=== PATIENT | male | born 1930 | race Hispanic/Latino ===

== ENCOUNTER 2017-01-08 08:32 | Outpatient (CLI) | payer MEDICARE, OTHER ==
[2017-01-08 08:58] LABS: Hematocrit 31.6 % (35.5-45.6); Hemoglobin 10.8 gm/dl (11.8-15.2); Mean Corpuscular HGB Conc 34 % (32-34); Mean Corpuscular Hemoglobin 36 pg (28-32); Mean Corpuscular Volume 105 fl (84-94); Platelet Count 107 K/mm3 (140-440); Red Blood Count 3.02 M/mm3 (3.65-5.03); Red Cell Distribution Width 14.2 % (13.2-15.2); White Blood Count 6.4 K/mm3 (4.5-11.0)
[2017-01-08 09:06] LABS: Bilirubin,Urine NEG (Negative); Blood,Urine NEG (Negative); Ketones,Urine NEG (Negative); Leukocyte Esterase,Urine NEG (Negative); Mucus,Urine FEW /HPF; Nitrite,Urine NEG (Negative); Protein,Urine <15 mg/dL mg/dL (Negative); RBC,Urine < 1.0 /HPF (0.0-6.0); Urobilinogen,Urine < 2.0 mg/dL (<2.0); WBC,Urine < 1.0 /HPF (0.0-6.0)
[2017-01-08 09:21] LABS: Albumin 3.6 g/dL (3.9-5); Calcium 8.5 mg/dL (8.4-10.2); Chloride 101.3 mmol/L (98-107); Phosphorous 2.8 mg/dL (2.5-4.5); Potassium 4.3 mmol/L (3.6-5.0)
== END 2017-01-08 08:33 | disposition home or self-care (01) ==
LOC: LAB 08:32
PROVIDERS: ATTEND Internal Medicine Nephrology
DX: I13.0 Hypertensive heart and chronic kidney disease with heart failure and stage 1 through stage 4 chronic kidney disease, or unspecified chronic kidney disease (principal); I50.9 Heart failure, unspecified; N18.3 Chronic kidney disease, stage 3 (moderate); E11.22 Type 2 diabetes mellitus with diabetic chronic kidney disease; I25.10 Atherosclerotic heart disease of native coronary artery without angina pectoris; E78.00 Pure hypercholesterolemia, unspecified; Z87.891 Personal history of nicotine dependence
CPT/HCPCS: 36415; 80048; 81001; 82040; 82570; 84100; 84156; 85027

== ENCOUNTER 2017-05-20 11:55 | Outpatient (CLI) | payer MEDICARE, OTHER ==
[2017-05-20 12:17] LABS: Bacteria,Urine 1+ /HPF (Negative); Bilirubin,Urine NEG (Negative); Blood,Urine NEG (Negative); Ketones,Urine NEG (Negative); Leukocyte Esterase,Urine TR (Negative); Mucus,Urine FEW /HPF; Nitrite,Urine NEG (Negative); Protein,Urine <15 mg/dL mg/dL (Negative); Urobilinogen,Urine < 2.0 mg/dL (<2.0)
[2017-05-20 12:40] LABS: Albumin 3.4 g/dL (3.9-5); Calcium 8.5 mg/dL (8.4-10.2); Chloride 97.6 mmol/L (98-107); Phosphorous 2.6 mg/dL (2.5-4.5); Potassium 3.9 mmol/L (3.6-5.0)
[2017-05-20 12:42] LABS: Hematocrit 34.2 % (35.5-45.6); Hemoglobin 11.5 gm/dl (11.8-15.2); Mean Corpuscular HGB Conc 34 % (32-34); Mean Corpuscular Hemoglobin 34 pg (28-32); Mean Corpuscular Volume 101 fl (84-94); Platelet Count 122 K/mm3 (140-440); Red Blood Count 3.38 M/mm3 (3.65-5.03); Red Cell Distribution Width 13.8 % (13.2-15.2); White Blood Count 6.9 K/mm3 (4.5-11.0)
[2017-05-22 14:55] LABS: Vitamin D, 25-OH, Total 52 ng/mL (30-100)
== END 2017-05-20 11:56 | disposition home or self-care (01) ==
LOC: LAB 11:55
PROVIDERS: ATTEND Internal Medicine Nephrology
DX: I13.0 Hypertensive heart and chronic kidney disease with heart failure and stage 1 through stage 4 chronic kidney disease, or unspecified chronic kidney disease (principal); N18.3 Chronic kidney disease, stage 3 (moderate); I50.9 Heart failure, unspecified; E11.22 Type 2 diabetes mellitus with diabetic chronic kidney disease
CPT/HCPCS: 36415; 80048; 81001; 82040; 82306; 82570; 84100; 84156; 85027

== ENCOUNTER 2017-10-21 07:25 | Emergency (ER) | payer MEDICARE, OTHER ==
[2017-10-21] MEDS ORDERED: NORCO 5/325 PO ONE (07:57)
[2017-10-21] MEDS ORDERED: TRIPLE ANTIBIOTIC TP ONE (07:57)
[2017-10-21] MEDS ORDERED: FLEXERIL PO ONE (07:57)
--- NOTE | 2017-10-21 08:03 | Emergency Department Report ---
ED Fall HPI - General Chief Complaint: Back Pain/Injury Stated Complaint: FALL Time Seen by Provider: 10/21/17 07:49 Source: patient, family Mode of arrival: Ambulatory Limitations: No Limitations - History of Present Illness Initial Comments: Patient reports falling Saturday night and tripped and fell back hitting the right flank area. He states that he tripped on one small step. is here with him and said that patient passed to use a cane to get around for as before he was independent without any impairment in his mobility. Patient states that it's hard for him to topic disease having a lot of pain. Pain is located to his lower back on the right side, pelvis area and right elbow extending down to his right hand. He is also reported that he has several bruises in to his right forearm and elbow. Denies any nausea or vomiting. Denies any head injury. Patient takes Tylenol 3 and reports the foot patient has been taken and last gave the patient medication on Saturday for pain. Patient is on Plavix but he did not have any head injury and denies any headache. Denies any neck pain or stiffness. Denies any numbness or tingling to extremities or any loss of bowel or bladder function. Pain is worse with movement and better with rest. Patient also takes multiple other medication at home. does not have medication lists but he takes Plavix and Tylenol No. 3. He has a history of arthritis, DVT in his left leg 9 months ago. Diabetes, GERD heart attack high blood pressure. Kidney disease stage III and coronary artery stent. MD Complaint: fall Onset/Timin -: days(s) Fall From: standing When Fall Occurred: # days [employer] (2) Fall Witnessed: yes, by family Place Fall Occurred: home Loss of Consciousness: none Prolonged Down Time?: no Symptoms Prior to Fall: none Location: back, pelvis Location - Extremities: Right: Elbow (pain, bruising and abrasion), Forearm ( pain, bruising and abrasion), Hand (pain, bruising and abrasion) Severity: severe Severity scale (0 -10): 10 Quality: aching Context: tripped/slipped Associated Symptoms: other (difficulty and ambulated in). denies: headache, neck pain, numbness, weakness, chest paint, shortness of breath, abdominal pain , hematuria, lightheaded, vertigo, confusion - Related Data Previous Rx's Medication Instructions Recorded Last Taken Type Clopidogrel [Plavix] 75 mg PO QDAY #30 tablet 11/22/15 10/20/17 09:00 Rx Acetaminophen/Codeine [Tylenol 1 tab PO Q4HR PRN #14 tablet 07/18/17 10/19/17 21 :45 Rx /Codeine # 3 tab] Cyclobenzaprine [Flexeril] 10 mg PO BID PRN #10 tablet 10/21/17 Unknown Rx Allergies Allergy/AdvReac Type Severity Reaction Status Date / Time indomethacin Allergy Vomiting Verified 10/21/17 07:35 ED Review of Systems ROS: Stated complaint: FALL Other details as noted in HPI Comment: All other systems reviewed and negative Constitutional: no symptoms reported Eyes: denies: eye pain, eye discharge, vision change ENT: denies: ear pain, throat pain, congestion Respiratory: denies: cough, orthopnea, shortness of breath, SOB with exertion, SOB at rest, wheezing Cardiovascular: denies: chest pain, palpitations, dyspnea on exertion, edema, syncope, paroxysmal nocturnal dyspnea Endocrine: no symptoms reported Gastrointestinal: denies: abdominal pain, nausea, vomiting, diarrhea, constipation, hematemesis, melena, hematochezia Genitourinary: denies: urgency, dysuria, frequency, hematuria, discharge, testicular pain, testicular mass Musculoskeletal: denies: back pain, joint swelling, arthralgia Skin: denies: rash, lesions Neurological: denies: headache, weakness, numbness, paresthesias, confusion, abnormal gait, vertigo Hematological/Lymphatic: denies: easy bruising ED Past Medical Hx - Past Medical History Previous Medical History?: Yes Hx Hypertension: Yes (FOR 20+ YRS, DR. 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) Hx HIV: No - Surgical History Past Surgical History?: Yes Hx Coronary Stent: Yes (X2 IN 1998) - Family History Family history: hypertension - Social History Smoking Status: Former Smoker Substance Use Type: None Other Social History: and lives at home - Medications Home Medications: Home Medications Medication Instructions Recorded Confirmed Last Taken Type Clopidogrel [Plavix] 75 mg PO QDAY #30 tablet 11/22/15 10/21/17 10/20/17 09:00 Rx Acetaminophen/Codeine [Tylenol 1 tab PO Q4HR PRN #14 tablet 07/18/17 10/21/17 21:45 Rx /Codeine # 3 tab] Cyclobenzaprine [Flexeril] 10 mg PO BID PRN #10 tablet 10/21/17 Unknown Rx ED Physical Exam - General Limitations: Physical Limitation General appearance: alert, in no apparent distress - Head Head exam: Present: atraumatic, normocephalic, normal inspection - Expanded Head Exam Expanded Head exam: Absent: laceration, abrasion, contusion, hematoma, racoon eyes, corona's sign, general tenderness, tenderness of temporal artery, CSF rhinorrhea , CSF otorrhea - Eye Eye exam: Present: normal appearance, PERRL, EOMI. Absent: scleral icterus, conjunctival injection, nystagmus, periorbital swelling, periorbital tenderness Pupils: Present: normal accommodation - ENT ENT exam: Present: normal exam, normal orophraynx, mucous membranes moist, TM's normal bilaterally, normal external ear exam - Neck Neck exam: Present: normal inspection, full ROM, other (no C-spine tenderness). Absent: tenderness, meningismus, lymphadenopathy - Expanded Neck Exam Expanded Neck exam: Absent: tenderness, midline deformity, anterior neck swelling, tracheal deviation - Respiratory Respiratory exam: Present: normal lung sounds bilaterally. Absent: respiratory distress, wheezes, rales, rhonchi, stridor, chest wall tenderness, accessory muscle use, decreased breath sounds, prolonged expiratory - Cardiovascular Cardiovascular Exam: Present: regular rate, normal rhythm, normal heart sounds. Absent: systolic murmur, diastolic murmur - GI/Abdominal GI/Abdominal exam: Present: soft, normal bowel sounds. Absent: distended, tenderness, guarding, rebound, rigid, organomegaly, mass, bruit, pulsatile mass , hernia - Extremities Exam Extremities exam: Present: normal inspection, full ROM, normal capillary refill , other (no clubbing, cyanosis or edema. +2 pulses all extremities. No joint deformities. Positive abrasions and skin tear to right forearm and right elbow. Positive bruising to right forearm and right elbow otherwise normal extremity). Absent: tenderness, pedal edema, joint swelling, calf tenderness - Expanded Upper Extremity Exam Right General: Present: abrasion. Absent: normal inspection Shoulder Exam: Present: normal inspection, full ROM, ecchymosis. Absent: tenderness, swelling, abrasion, laceration, deformity, crepidus, dislocation, erythema, tenderness over AC joint Upper Arm exam: Present: normal inspection, full ROM. Absent: tenderness, swelling, abrasion, laceration, ecchymosis, deformity, crepidus, dislocation, erythema Elbow exam: Present: normal inspection, full ROM, tenderness, swelling, abrasion , ecchymosis. Absent: laceration, deformity, crepidus, dislocation, erythema, effusion, pain w/ pronation/supination, tenderness over radial head Forearm Wrist exam: Present: normal inspection, full ROM, tenderness, swelling, abrasion, ecchymosis. Absent: laceration, deformity, crepidus, dislocation, erythema, tenderness over anatomical snuff box, pain with axial thumb loading Hand Wrist exam: Present: normal inspection, full ROM, tenderness (right hand), swelling (right hand), laceration, ecchymosis (right hand). Absent: abrasion, deformity, crepidus, dislocation, amputation, nail avulsion, subungual hematoma Neuro motor exam: Present: wrist extension intact, thumb opposition intact, thumb IP flexion intact, thumb adduction intact, fingers 2-5 abduction intact Neurosensory exam: Present: 2-point discrimination, radial nerve intact, ulnar nerve intact, median nerve intact Vascular: Present: normal capillary refill, radial pulse, brachial pulse, ulnar pulse. Absent: vascular compromise, Pallo, pulse deficit radial art, pulse deficit ulnar art, pulse deficit brachial art - Back Exam Back exam: Present: normal inspection, full ROM, tenderness, paraspinal tenderness (right paraspinal tenderness), other (patient ambulates with cane which is new.). Absent: CVA tenderness (R), CVA tenderness (L), muscle spasm, vertebral tenderness, rash noted - Neurological Exam Neurological exam: Present: alert, oriented X3, abnormal gait (patient uses a cane to ambulate.), motor sensory deficit, reflexes normal - Psychiatric Psychiatric exam: Present: normal affect, normal mood - Skin Skin exam: Present: warm, dry, intact, erythema, abrasion (patient has abrasions to right distal forearm and right elbow. Bruising to right distal to mid forearm, right elbow and right hand.) ED Course Vital Signs 10/21/17 10/21/17 10/21/17 07:36 09:13 14:16 Temperature 97.9 F Pulse Rate 79 74 Respiratory 18 16 18 Rate Blood Pressure 128/65 Blood Pressure 124/70 [Left] O2 Sat by Pulse 98 98 Oximetry - Reevaluation(s) Reevaluation #1: 10/21/17 09:[address] scan of the lumbar spine revealed left L2 nondisplaced lumbar fracture. Degenerative disc disease and osteopenia. Patient was given [place] 5/325 2 tablets in emergency room and Flexeril 10 mg by mouth to manage pain which controlled his pain. Urinalysis did not detect any infection but positive for protein Reevaluation #2: 10/21/17 11:10 Patient is stable and pain is controlled. Patient patient has to use assistive device to ambulate. He is slow to ambulate. Reevaluation #3: 10/21/17 12:[address] Wander Lopez office and awaiting callback from her regarding patient Reevaluation #4: 10/21/17 12:[address] Jamil and it is agreed upon that patient can be discharged home with follow-up with primary care and I'll also refer him to Dr. Wander Lopez who is neurosurgeon. Patient demonstrated walk-in with assistive device without any difficulties. He said his pain is better and he is not having any pain at present. Patient with fracture to left L2 transverse process that is nondisplaced, osteopenia and scoliosis and advanced lumbar spondylosis ED Medical Decision Making - Radiology Data Radiology results: report reviewed CT scan of lumbar spine:Patient with fracture to left L2 transverse process that is nondisplaced, osteopenia and scoliosis and advanced lumbar spondylosis CT scan of pelvis without contrast shows osteopenia. Degenerative changes. No acute pelvic injury X-ray of right forearm reveals no acute bony abnormalities but patient with osteopenia X-ray of right elbow reveal patient with no acute bony abnormality but with osteopenia and x-ray of right hand reveal patient with no acute findings. Print Report Referring Physician: MARY SANCHEZ Patient Name: FLORA GREEN Date of : 1930 Sex: Male Report Date: 2017-10-21 Report Status: Finalized Findings [address] [address] Cat Scan Report Signed Patient: FLORA GREEN MR#: [id number] : 1930 Acct:[id number] Age/Sex: 86 / M ADM Date: 10/21/17 Loc: ED Attending Dr: Ordering Physician: ANDRZEJ DIAZ Date of Service: 10/21/17 Procedure(s): CT lumbar spine wo con Accession Number(s): [id number] cc: ANDRZEJ DIAZ CT LUMBAR SPINE WITHOUT CONTRAST History: Fall with lower back pain. Technique: Helical CT in 1.25 mm intervals with sagittal and coronal reformatted images. Findings: Moderate to severe osteopenia is suspected. A very subtle nondisplaced fracture is identified in the distal tip of the left transverse process of L2. This is best demonstrated on coronal image 70. No additional fracture is identified. There is moderate scoliosis and advanced multilevel degenerative disc disease and facet arthropathy. All levels are affected. No evidence for compression deformity, subluxation or bone lesion. Although intraspinal contents can be obscured on CT, no large epidural hematoma is appreciated. IMPRESSION: Left L2 transverse process fracture, nondisplaced. Osteopenia. Scoliosis and advanced lumbar spondylosis. Transcribed By: TTR Dictated By: DANIEL LING JR, MD Electronically Authenticated By: DANIEL LING JR, MD Signed Date/Time: 10/21/17908 DD/ 6 TD/TT: 10/21/17908 Referring Physician: MARY SANCHEZ Patient Name: FLORA GREEN Date of : 1930 Sex: Male Report Date: 2017-10-21 Report Status: Finalized Findings [facility] [address] [place] [address] XRay Report Signed Patient: FLORA GREEN MR#: [id number] : 1930 Acct:[id number] Age/Sex: 86 / M ADM Date: 10/21/17 Loc: ED Attending Dr: Ordering Physician: ANDRZEJ DIAZ Date of Service: 10/21/17 Procedure(s): XR forearm RT Accession Number(s): [id number] cc: ANDRZEJ DIAZ Fluoro Time In Minutes: RIGHT FOREARM: History: Pain. Osteopenia is noted. There has been previous internal fixation of the distal right radius. No acute fracture or malalignment is identified. The soft tissues are unremarkable IMPRESSION: No acute injury detected. Osteopenia. Transcribed By: TTR Dictated By: DANIEL LING JR, MD Electronically Authenticated By: DANIEL LING JR, MD Signed Date/Time: 10/21/17935 DD/ 4 TD/TT: 10/21/17935 Print Report Referring Physician: MARY SANCHEZ Patient Name: FLORA GREEN Date of : 1930 Sex: Male Report Date: 2017-10-21 Report Status: Finalized Findings [facility] [address] [id number] Cat Scan Report Signed Patient: FLORA GREEN MR#: [id number] : 1930 Acct:[id number] Age/Sex: 86 / M ADM Date: 10/21/17 Loc: ED Attending Dr: Ordering Physician: ANDRZEJ DIAZ Date of Service: 10/21/17 Procedure(s): CT pelvis wo con Accession Number(s): [id number] cc: ANDRZEJ DIAZ CT PELVIS WITHOUT CONTRAST History: Pain after fall. Technique: Helical CT in 1.25 mm intervals with sagittal reformatted images. Findings: Moderate to severe osteopenia is suspected. There is no evidence for displaced pelvic fracture, diastasis or bone lesion. Mild osteoarthritic changes are noted in both hips and SI joints. The pelvic viscera are grossly intact. An aortobiiliac stent is partially imaged and unremarkable. 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 Bilateral iliac vein stents are also in position. Impression: Osteopenia. Degenerative changes. No acute pelvic injury is appreciated. Transcribed By: TTR Dictated By: DANIEL LING JR, MD Electronically Authenticated By: DANIEL LING JR, MD Signed Date/Time: 10/21/17905 DD/ 3 TD/TT: 10/21/17905 Findings [facility] [address] [place] [address] XRay Report Signed Patient: FLORA GREEN MR#: [id number] : 1930 Acct:[id number] Age/Sex: 86 / M ADM Date: 10/21/17 Loc: ED Attending Dr: Ordering Physician: ANDRZEJ DIAZ Date of Service: 10/21/17 Procedure(s): XR hand 3+V RT Accession Number(s): [id number] cc: ANDRZEJ DIAZ Fluoro Time In Minutes: Right hand: Fall, pain. There is a dorsal plate over the distal radius from prior injury with good bone union. Well-positioned screws. The remainder of the hand is generally unremarkable. No evidence of fracture, dislocation, or joint narrowing. No focal swelling noted. Impression: No acute finding. Right forearm: Fall, pain. The surgical plate is again noted of the distal radius. The bony structures are intact. There is good alignment of the radiocarpal joint space. No focal swelling noted. Impression: No acute change. LEFT ELBOW: Fall, abrasion. The bony architecture is intact without evidence of fracture or dislocation. No significant soft tissue abnormality is seen. IMPRESSION: Normal left elbow. Transcribed By: [facility]–1983 Dictated By: NEGAR CHEEMA MD Electronically Authenticated By: NEGAR CHEEMA MD Signed Date/Time: 10/21/17936 DD/ 2 TD/TT: 10/21/17936 - Medical Decision Making Ed Course: Patient here with who reports patient fell 2 days ago and having hip and back pain. UA negative findings. Xray of left elbow, FA and hand without fx or dislocation. Ct scan of lumbar spine with fracture to left L2 transverse process. Pelvis Ct revealed no fx or dislocation but osteopenia. Pt xray and ct scan with osteopenia. I explained to patient and CT scan, Xray and UA results. They voiced understanding. Patient to followup with PCP and Dr Steven Lopez in [place], [place]. patient given [place] 5/325 mg and flexeril 10 mg po in Ed with complete relief of pain. I collaborated with Dr. Jamil on patient complaints, physical findings and radiology reports. He wants patient to be managed outpatient by PCP and I also referred patient to followup with Neurosurgeon. Patient given walker and demonstrated use of walker. He has no neurological deficits. Please refer to lab section and radiology section for detail reports. Patient and his voiced understanding of discharge information and reports feeling better. discharge home in stable condition with prescription for flexeril and he can take Tylenol #3 that he already has with fall precaution instructions. - Differential Diagnosis fracture spine, lumbago, Critical care attestation.: If time is entered above; I have spent that time in minutes in the direct care of this critically ill patient, excluding procedure time. ED Disposition Clinical Impression: Arthralgia of multiple sites, Mobility impaired, Abrasion, multiple sites Fracture of transverse process of lumbar vertebra Qualifiers: Encounter type: initial encounter Fracture type: closed Qualified Code(s): S32.009A - Unspecified fracture of unspecified lumbar vertebra, initial encounter for closed fracture Pain in lower back Qualifiers: Chronicity: acute Back pain laterality: right Sciatica presence: without sciatica Qualified Code(s): M54.5 - Low back pain Accidental fall Qualifiers: Encounter type: initial encounter Qualified Code(s): W19.XXXA - Unspecified fall, initial encounter Superficial bruising of upper limb Qualifiers: Encounter type: initial encounter Laterality: right Qualified Code(s): S40.021A - Contusion of right upper arm, initial encounter Disposition: TO HOME OR SELFCARE Is pt being admited?: No Does the pt Need Aspirin: No Condition: Stable Instructions: Fall Prevention for Older Adults (ED), Thoracolumbar Fracture (ED ), Contusion in Adults (ED), Abrasion (ED), Musculoskeletal Pain (ED), Arthralgia (ED) Additional Instructions: Please return to the emergency room if you develop any loss of bowel or bladder control, worsening in and difficulty in walking., Increase in pain does not relieve by medication, dizziness, blurred vision, headache, nausea and/or vomiting. Follow-up with primary care physician in [address] Wander Lopez office and schedule an appointment for follow-up visit tomorrow see information and discharge instruction paperwork .her office is located in [place]. Please follow discharge instruction and fall in elderly He can take Tylenol No. 3 as prescribed by a previous doctor but please do not drive or operate heavy machinery and be aware that this medication can cause you to fall because it is a narcotic. Flexeril will also help the pain but he can also make you drowsy and lesion increased risk for fall so please use a walker as instructed Keep abrasion sites clean and dry and apply neosporin ointment daily ubtil healed Prescriptions: Cyclobenzaprine [Flexeril] 10 mg PO BID PRN #10 tablet PRN Reason: Muscle Spasm and pain Referrals: PRIMARY CARE, [Primary Care Provider] - 10/23/17 [facility] [place] [Other] - 10/23/17 (Dr Steven Lopez)
--- NOTE | 2017-10-21 09:16 | Cat Scan Report ---
CT PELVIS WITHOUT CONTRAST History: Pain after fall. Technique: Helical CT in 1.25 mm intervals with sagittal reformatted images. Findings: Moderate to severe osteopenia is suspected. There is no evidence for displaced pelvic fracture, diastasis or bone lesion. Mild osteoarthritic changes are noted in both hips and SI joints. The pelvic viscera are grossly intact. An aortobiiliac stent is partially imaged and unremarkable. 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 Bilateral iliac vein stents are also in position. Impression: Osteopenia. Degenerative changes. No acute pelvic injury is appreciated.
[2017-10-21 09:19] LABS: Bilirubin,Urine NEG (Negative); Blood,Urine NEG (Negative); Color,Urine Yellow (Yellow); Mucus,Urine FEW /HPF; Urobilinogen,Urine < 2.0 mg/dL (<2.0)
--- NOTE | 2017-10-21 09:19 | Cat Scan Report ---
CT LUMBAR SPINE WITHOUT CONTRAST History: Fall with lower back pain. Technique: Helical CT in 1.25 mm intervals with sagittal and coronal reformatted images. Findings: Moderate to severe osteopenia is suspected. A very subtle nondisplaced fracture is identified in the distal tip of the left transverse process of L2. This is best demonstrated on coronal image 70. No additional fracture is identified. There is moderate scoliosis and advanced multilevel degenerative disc disease and facet arthropathy. All levels are affected. No evidence for compression deformity, subluxation or bone lesion. Although intraspinal contents can be obscured on CT, no large epidural hematoma is appreciated. IMPRESSION: Left L2 transverse process fracture, nondisplaced. Osteopenia. Scoliosis and advanced lumbar spondylosis.
--- NOTE | 2017-10-21 09:44 | XRay Report ---
BILATERAL ELBOW, 2 VIEWS History: Pain. Findings: 2 Non-standard views of both elbows are presented. No gross fracture or malalignment. Osteopenia is noted. Impression: No acute abnormality detected. Osteopenia.
--- NOTE | 2017-10-21 09:45 | XRay Report ---
RIGHT FOREARM: History: Pain. Osteopenia is noted. There has been previous internal fixation of the distal right radius. No acute fracture or malalignment is identified. The soft tissues are unremarkable IMPRESSION: No acute injury detected. Osteopenia.
--- NOTE | 2017-10-21 09:49 | XRay Report ---
Right hand: Fall, pain. There is a dorsal plate over the distal radius from prior injury with good bone union. Well-positioned screws. The remainder of the hand is generally unremarkable. No evidence of fracture, dislocation, or joint narrowing. No focal swelling noted. Impression: No acute finding. Right forearm: Fall, pain. The surgical plate is again noted of the distal radius. The bony structures are intact. There is good alignment of the radiocarpal joint space. No focal swelling noted. Impression: No acute change. LEFT ELBOW: Fall, abrasion. The bony architecture is intact without evidence of fracture or dislocation. No significant soft tissue abnormality is seen. IMPRESSION: Normal left elbow.
[2017-10-21 14:18] VITALS: BP 124/70
== END 2017-10-21 14:13 | disposition home or self-care (01) ==
LOC: ED 07:25
DX: S40.021A Contusion of right upper arm, initial encounter (principal); S32.009A Unspecified fracture of unspecified lumbar vertebra, initial encounter for closed fracture; I13.0 Hypertensive heart and chronic kidney disease with heart failure and stage 1 through stage 4 chronic kidney disease, or unspecified chronic kidney disease; E11.22 Type 2 diabetes mellitus with diabetic chronic kidney disease; N18.3 Chronic kidney disease, stage 3 (moderate); K21.9 Gastro-esophageal reflux disease without esophagitis; Z95.1 Presence of aortocoronary bypass graft; Z86.718 Personal history of other venous thrombosis and embolism; Z87.891 Personal history of nicotine dependence; W01.198A Fall on same level from slipping, tripping and stumbling with subsequent striking against other object, initial encounter; Y93.89 Activity, other specified; Y92.89 Other specified places as the place of occurrence of the external cause; Y99.8 Other external cause status
CPT/HCPCS: 72131; 72192; 81001; A6250

== ENCOUNTER 2018-01-14 10:32 | Outpatient (CLI) | payer MEDICARE, OTHER ==
[2018-01-14 10:59] LABS: Hematocrit 34.7 % (35.5-45.6); Hemoglobin 11.7 gm/dl (11.8-15.2); Mean Corpuscular HGB Conc 34 % (32-34); Mean Corpuscular Hemoglobin 35 pg (28-32); Mean Corpuscular Volume 104 fl (84-94); Red Blood Count 3.33 M/mm3 (3.65-5.03); Red Cell Distribution Width 15.6 % (13.2-15.2)
[2018-01-14 11:02] LABS: Platelet Count 80 K/mm3 (140-440)
[2018-01-14 11:17] LABS: Bilirubin,Urine NEG (Negative); Blood,Urine NEG (Negative); Color,Urine Yellow (Yellow); Hyaline Casts,Urine 1 /LPF; Protein,Urine <15 mg/dL mg/dL (Negative); Urobilinogen,Urine < 2.0 mg/dL (<2.0)
[2018-01-14 11:21] LABS: Albumin 3.2 g/dL (3.9-5); Calcium 8.5 mg/dL (8.4-10.2)
[2018-01-14 12:12] LABS: Creatinine,Urine 105.7 mg/dL (0.1-20.0); Protein/Creatinine Ratio,Urine 0.22
== END 2018-01-14 10:33 | disposition home or self-care (01) ==
LOC: LAB 10:32
PROVIDERS: ATTEND Internal Medicine Nephrology
DX: I12.9 Hypertensive chronic kidney disease with stage 1 through stage 4 chronic kidney disease, or unspecified chronic kidney disease (principal); E11.22 Type 2 diabetes mellitus with diabetic chronic kidney disease; N18.3 Chronic kidney disease, stage 3 (moderate); E78.00 Pure hypercholesterolemia, unspecified; K21.9 Gastro-esophageal reflux disease without esophagitis; I73.9 Peripheral vascular disease, unspecified; I25.10 Atherosclerotic heart disease of native coronary artery without angina pectoris; M17.0 Bilateral primary osteoarthritis of knee; Z87.891 Personal history of nicotine dependence; Z88.6 Allergy status to analgesic agent
CPT/HCPCS: 36415; 80048; 81001; 82040; 82248; 82570; 84100; 84156; 85027

== ENCOUNTER 2018-10-08 15:45 | Outpatient (CLI) | payer MEDICARE, OTHER ==
[2018-10-08 16:33] LABS: Basophils # (Auto) 0.1 K/mm3 (0.0-0.1); Basophils % (Auto) 1.2 % (0.0-1.8); Eosinophils # (Auto) 0.2 K/mm3 (0.0-0.4); Eosinophils % (Auto) 3.3 % (0.0-4.3); Hematocrit 36.5 % (35.5-45.6); Hemoglobin 12.3 gm/dl (11.8-15.2); Lymphocytes # (Auto) 3.2 K/mm3 (1.2-5.4); Lymphocytes % (Auto) 43.8 % (13.4-35.0); Mean Corpuscular HGB Conc 34 % (32-34); Mean Corpuscular Volume 104 fl (84-94); Monocytes # (Auto) 0.8 K/mm3 (0.0-0.8); Monocytes % (Auto) 10.5 % (0.0-7.3); Platelet Count 112 K/mm3 (140-440); Red Blood Count 3.51 M/mm3 (3.65-5.03)
[2018-10-08 16:43] LABS: Bilirubin,Urine NEG (Negative); Blood,Urine NEG (Negative); Color,Urine Yellow (Yellow); Hyaline Casts,Urine 1 /LPF; Mucus,Urine 1+ /HPF
[2018-10-08 16:45] LABS: Creatinine,Urine 168.8 mg/dL (0.1-20.0); Microalbumin/Creatinine Ratio 113.1 ug/mg; Protein/Creatinine Ratio,Urine 0.3
[2018-10-08 17:33] LABS: Chol/HDL Ratio 2.14 %
== END 2018-10-08 15:46 | disposition home or self-care (01) ==
LOC: LAB 15:45
PROVIDERS: ATTEND Internal Medicine Nephrology
DX: I12.9 Hypertensive chronic kidney disease with stage 1 through stage 4 chronic kidney disease, or unspecified chronic kidney disease (principal); E11.51 Type 2 diabetes mellitus with diabetic peripheral angiopathy without gangrene; E11.22 Type 2 diabetes mellitus with diabetic chronic kidney disease; N18.3 Chronic kidney disease, stage 3 (moderate); E78.49 Other hyperlipidemia; I25.10 Atherosclerotic heart disease of native coronary artery without angina pectoris; E78.00 Pure hypercholesterolemia, unspecified; K21.9 Gastro-esophageal reflux disease without esophagitis; M19.90 Unspecified osteoarthritis, unspecified site; Z87.891 Personal history of nicotine dependence
CPT/HCPCS: 36415; 80048; 80061; 81001; 82040; 82043; 82570; 83036; 83970; 84100; 84156; 85025

== ENCOUNTER 2018-10-21 15:46 | Emergency (ER) | payer MEDICARE, OTHER ==
--- NOTE | 2018-10-21 16:26 | Emergency Department Report ---
Chief Complaint: Head Injury Stated Complaint: LFT EYE PAIN Time Seen by Provider: 10/21/18 16:21 - HPI History of Present Illness: This is a 87 y.o. male that presents to the ER s/p fall 3 days. Patient fell Saturday night and woke up on the floor. Patient went to ophthalmology and Cardiology Dr. Bermudez. Patient reports patient complaining of left sided rib pain. PMH: HTN, DM2, HLD, & atherosclerosis. - Exam Vital Signs: Vital Signs 10/21/18 16:12 Temperature 97.7 F Pulse Rate 84 Respiratory 20 Rate Blood Pressure 129/71 O2 Sat by Pulse 99 Oximetry MSE screening note: Focused history and physical exam performed. Due to findings the following was ordered: Labs, CT of facial bones, head, and XR of left sided rib pain. Main ED for further evaluation. ED Disposition for MSE Condition: Stable
[2018-10-21 16:47] LABS: Hematocrit 33.5 % (35.5-45.6); Hemoglobin 11.3 gm/dl (11.8-15.2); Mean Corpuscular HGB Conc 34 % (32-34); Mean Corpuscular Volume 105 fl (84-94); Platelet Count 116 K/mm3 (140-440); Red Blood Count 3.18 M/mm3 (3.65-5.03); Red Cell Distribution Width 16.2 % (13.2-15.2)
[2018-10-21 17:18] LABS: Basophils % (Manual) 0 % (0.0-1.8); Myelocytes # (Manual) 0.1 K/mm3; Total Cells Counted 100
[2018-10-21 17:19] LABS: Anisocytosis Few; Ovalocytes Few; Platelet Estimate Appears Decreased
--- NOTE | 2018-10-21 17:19 | Cat Scan Report ---
PROCEDURE: CT FACIAL BONES WO CON HISTORY: headache, bruising, and swelling left frontal FINDINGS: Unenhanced CT of the facial bones was performed and data was reformatted into sagittal and coronal planes. These images demonstrate left frontal scalp swelling without calvarial fracture. There is also left f acial soft tissue swelling. The nasal bones, bony orbits, zygomatic arches, mandible and maxilla appear intact. Both globes appear unremarkable. There is no retrobulbar mass or hemorrhage. There is sinus mucosal thickening without acute sinusitis. IMPRESSION: Left frontal and left facial soft tissue swelling The facial bones and bony orbits appear intact This document is electronically signed by Berlin Gates MD., Oct 21 2018 05:17:14 PM ET
--- NOTE | 2018-10-21 17:21 | Cat Scan Report ---
PROCEDURE: CT HEAD/BRAIN WO CON TECHNIQUE: Computerized tomography of the head was performed without contrast material. CT DOSE LENGTH PRODUCT: 805.4 mGycm HISTORY: headache, bruising Findings: Unenhanced CT of the brain was performed and demonstrates no acute intracranial hemorrhage, intra-axi al fluid collection, midline shift or mass effect. The ventricles and basal cisterns are not effaced. 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 There are moderate chronic-appearing small vessel ischemic white matter changes in subcortical and pe riventricular left frontal scalp swelling without calvarial fracture. The mastoid air cells and middle ears appear clear. There is no evidence of acute sinusitis. IMPRESSION: No acute intracranial hemorrhage This document is electronically signed by Berlin Gates MD., Oct 21 2018 05:19:19 PM ET
--- NOTE | 2018-10-21 17:56 | Emergency Department Report ---
ED Fall HPI - General Chief Complaint: Head Injury Stated Complaint: LFT EYE PAIN Time Seen by Provider: 10/21/18 16:21 Source: patient, family Mode of arrival: Ambulatory - History of Present Illness Initial Comments: Patient is 87 years old male with history of hypertension, diabetes coronary artery disease on Coumadin. Patient brought to the emergency room accompanied by his stating that patient had an to falls in the last 2 weeks. Patient presented with ecchymosis to the left eye. 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 Patient is currently denying any symptoms specifically patient denied any headache, weakness numbness or tingling sensation. Patient denied any chest pain shortness of breath or dizziness. MD Complaint: fall -: days(s) (3) Fall From: out of bed - Related Data Previous Rx's Medication Instructions Recorded Last Taken Type Clopidogrel [Plavix] 75 mg PO QDAY #30 tablet 11/22/15 10/20/17 09:00 Rx Acetaminophen/Codeine [Tylenol 1 tab PO Q4HR PRN #14 tablet 07/18/17 10/19/17 21:45 Rx /Codeine # 3 tab] Cyclobenzaprine [Flexeril] 10 mg PO BID PRN #10 tablet 10/21/17 Unknown Rx Allergies Allergy/AdvReac Type Severity Reaction Status Date / Time indomethacin Allergy Vomiting Verified 10/21/18 16:10 ED Review of Systems ROS: Stated complaint: LFT EYE PAIN Other details as noted in HPI Comment: All other systems reviewed and negative Constitutional: denies: chills, fever Respiratory: denies: cough, orthopnea, shortness of breath, SOB with exertion, SOB at rest, wheezing Cardiovascular: denies: chest pain, palpitations Gastrointestinal: denies: abdominal pain, nausea, vomiting, diarrhea, constipation, hematemesis, hematochezia Neurological: denies: headache, numbness, paresthesias ED Past Medical Hx - Past Medical History Hx Hypertension: Yes (FOR 20+ YRS, DR. 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) Hx HIV: No - Surgical History Hx Coronary Stent: Yes (X2 IN 1998) - Social History Smoking Status: Never Smoker Substance Use Type: None - Medications Home Medications: Home Medications Medication Instructions Recorded Confirmed Last Taken Type Clopidogrel [Plavix] 75 mg PO QDAY #30 tablet 11/22/15 10/21/17 10/20/17 09:00 Rx Acetaminophen/Codeine [Tylenol 1 tab PO Q4HR PRN #14 tablet 07/18/17 10/21/17 21:45 Rx /Codeine # 3 tab] Cyclobenzaprine [Flexeril] 10 mg PO BID PRN #10 tablet 10/21/17 Unknown Rx ED Physical Exam - General Limitations: No Limitations General appearance: alert, in no apparent distress - Head Head exam: Present: other (ecchymosis to the left periorbital area) - Eye Eye exam: Present: normal appearance, PERRL - ENT ENT exam: Present: mucous membranes moist - Neck Neck exam: Present: normal inspection, full ROM. Absent: tenderness, meningismus, lymphadenopathy, thyromegaly - Respiratory Respiratory exam: Present: normal lung sounds bilaterally. Absent: respiratory distress, wheezes, rales, rhonchi, chest wall tenderness, accessory muscle use, decreased breath sounds, prolonged expiratory - Cardiovascular Cardiovascular Exam: Present: regular rate, normal rhythm, normal heart sounds - GI/Abdominal GI/Abdominal exam: Present: soft, normal bowel sounds. Absent: distended, tenderness, guarding, rebound, rigid, organomegaly, mass, bruit, pulsatile mass, hernia - Extremities Exam Extremities exam: Present: normal inspection, full ROM, normal capillary refill. Absent: pedal edema, calf tenderness - Back Exam Back exam: Present: normal inspection, full ROM. Absent: tenderness, CVA tenderness (R), CVA tenderness (L), muscle spasm, paraspinal tenderness, vertebral tenderness - Neurological Exam Neurological exam: Present: alert, oriented X3, CN II-XII intact, normal gait, reflexes normal - Psychiatric Psychiatric exam: Present: normal mood - Skin Skin exam: Present: warm, ecchymosis ED Course Vital Signs 10/21/18 16:12 Temperature 97.7 F Pulse Rate 84 Respiratory 20 Rate Blood Pressure 129/71 O2 Sat by Pulse 99 Oximetry ED Medical Decision Making - Lab Data Result diagrams: 10/21/18 16:34 - Radiology Data Radiology results: report reviewed CT brain is negative for acute finding. CT facial bones showed no fracture but there is a soft tissue swelling on the left facial. Critical care attestation.: If time is entered above; I have spent that time in minutes in the direct care of this critically ill patient, excluding procedure time. ED Disposition Clinical Impression: Fall, Headache, Head injury Disposition: DC-01 TO HOME OR SELFCARE Is pt being admited?: No Condition: Stable Instructions: Fall Prevention for Older Adults (ED), Minor Head Injury (ED) Referrals: ANDREINA MALDONADO MD [Primary Care Provider] - 3-5 Days
[2018-10-21 17:58] LABS: Calcium 8.6 mg/dL (8.4-10.2)
[2018-10-21 18:29] VITALS: BP 117/56
--- NOTE | 2018-10-21 18:33 | XRay Report ---
PROCEDURE: XR RIBS UNI W PA CHEST 3+V LT TECHNIQUE: Left ribs 5 views with frontal view of the chest HISTORY: left sided rib pain COMPARISONS: FINDINGS: No acute displaced rib fracture identified. Chest demonstrates no evidence for pneumothorax luminary infiltrate or pleural effusion. Noted is aortic stent partially visualized. IMPRESSION: Negative rib series. This document is electronically signed by Adiel Ball MD., Oct 21 2018 06:31:06 PM ET
== END 2018-10-21 18:50 | disposition home or self-care (01) ==
LOC: ED 15:46
DX: S00.12XA Contusion of left eyelid and periocular area, initial encounter (principal); I12.9 Hypertensive chronic kidney disease with stage 1 through stage 4 chronic kidney disease, or unspecified chronic kidney disease; E11.22 Type 2 diabetes mellitus with diabetic chronic kidney disease; N18.3 Chronic kidney disease, stage 3 (moderate); I25.2 Old myocardial infarction; K21.9 Gastro-esophageal reflux disease without esophagitis; Z79.4 Long term (current) use of insulin; Z86.718 Personal history of other venous thrombosis and embolism; Z95.1 Presence of aortocoronary bypass graft; Z88.8 Allergy status to other drugs, medicaments and biological substances; W06.XXXA Fall from bed, initial encounter; Y93.89 Activity, other specified; Y92.89 Other specified places as the place of occurrence of the external cause; Y99.8 Other external cause status
CPT/HCPCS: 36415; 70450; 70486; 80053; 85007; 85025; 93005; 93010; 99284

== ENCOUNTER 2019-02-05 08:36 | Outpatient (CLI) | payer MEDICARE, OTHER ==
[2019-02-05 09:04] LABS: Hematocrit 33.5 % (35.5-45.6); Hemoglobin 11.5 gm/dl (11.8-15.2); Mean Corpuscular HGB Conc 35 % (32-34); Mean Corpuscular Volume 101 fl (84-94); Platelet Count 139 K/mm3 (140-440); Red Cell Distribution Width 13.4 % (13.2-15.2)
[2019-02-05 09:20] LABS: Bilirubin,Urine NEG (Negative); Blood,Urine NEG (Negative); Color,Urine Yellow (Yellow); Mucus,Urine FEW /HPF; Urobilinogen,Urine < 2.0 mg/dL (<2.0)
[2019-02-05 09:34] LABS: Albumin 3.4 g/dL (3.9-5); Calcium 9.2 mg/dL (8.4-10.2)
[2019-02-05 12:25] LABS: Creatinine,Urine 128.1 mg/dL (0.1-20.0); Protein/Creatinine Ratio,Urine 0.94
== END 2019-02-05 08:37 | disposition home or self-care (01) ==
LOC: LAB 08:36
PROVIDERS: ATTEND Internal Medicine Nephrology
DX: E11.22 Type 2 diabetes mellitus with diabetic chronic kidney disease (principal); I12.9 Hypertensive chronic kidney disease with stage 1 through stage 4 chronic kidney disease, or unspecified chronic kidney disease; N18.3 Chronic kidney disease, stage 3 (moderate); M17.0 Bilateral primary osteoarthritis of knee; K21.9 Gastro-esophageal reflux disease without esophagitis; E78.00 Pure hypercholesterolemia, unspecified; Z86.718 Personal history of other venous thrombosis and embolism
CPT/HCPCS: 36415; 80048; 81001; 82040; 82570; 83036; 83970; 84100; 84156; 85027